=== PATIENT | female | born 1995 | race Hispanic/Latino ===

== ENCOUNTER 2018-02-16 11:00 | Emergency (ER) | payer SELFPAY ==
--- NOTE | 2018-02-16 11:52 | ER ---
Nurse's Notes [facility] Name: Anna Lynn Age: 22 yrs Sex: Female : 1995 Arrival Date: 02/16/2018 Time: 11:04 Bed 22 Private MD: None, None Diagnosis: Acute bronchitis Presentation: 02/16 11:18 Presenting complaint: Patient states: Cough and cold symptoms for 2 weeks. Transition aj of care: patient was not received from another setting of care. Onset of symptoms was February 04, 2018. Risk Assessment: Do you want to hurt yourself or someone else? Patient reports no desire to harm self or others. Initial Sepsis Screen: Does the patient meet any 2 criteria? No. Patient's initial sepsis screen is negative. Does the patient have a suspected source of infection? No. Patient's initial sepsis screen is negative. Care prior to arrival: None. 11:18 Method Of Arrival: Ambulatory aj 11:18 Acuity: PERNELL 4 aj Triage Assessment: 11:19 General: Appears in no apparent distress. comfortable, Behavior is calm, cooperative, aj appropriate for age. Pain: Denies pain. EENT: Reports nasal congestion nasal discharge. Neuro: Level of Consciousness is awake, alert, obeys commands, Oriented to person, place, time, situation, Appropriate for age. Respiratory: Reports cough that is. Derm: Skin is intact, is healthy with good turgor, Skin is pink, warm \T\ dry. normal. 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 - Social history:: Smoking status: Patient uses tobacco products, smokes one-half pack cigarettes per day. - Ebola Screening: : Patient negative for fever greater than or equal to 101.5 degrees Fahrenheit, and additional compatible Ebola Virus Disease symptoms Patient denies exposure to infectious person Patient denies travel to an Ebola-affected area in the 21 days before illness onset No symptoms or risks identified at this time. Screenin:32 Abuse screen: Denies threats or abuse. Denies injuries from another. Nutritional ss screening: No deficits noted. Tuberculosis screening: Never had TB. Fall Risk None identified. Assessment: 11:32 General: Appears in no apparent distress. comfortable, Behavior is cooperative. Pain: ss Denies pain. Neuro: Level of Consciousness is awake, alert, Oriented to person, place, time, situation. Cardiovascular: Capillary refill < 3 seconds is brisk in bilateral fingers. Respiratory: Breath sounds are clear bilaterally. Respiratory:. GI: Patient currently denies diarrhea, vomiting. : No signs and/or symptoms were reported regarding the genitourinary system. EENT: Nares are clear Oral mucosa is moist. Derm: Skin is intact, is healthy with good turgor, Skin is dry, Skin is pink, warm \T\ dry. normal. Musculoskeletal: Circulation, motion, and sensation intact. Range of motion: intact in all extremities, Swelling absent. 11:32 Respiratory: Reports cough that is non-productive, dry, hacking, persistent since x 3 ss weeks. Vital Signs: 11:19 BP 140 / 92; Pulse 87; Resp 20; Temp 98.6; Pulse Ox 98% on R/A; Weight 74.84 kg; Height aj 5 ft. 2 in. (157.48 cm); 11:19 Body Mass Index 30.18 (74.84 kg, 157.48 cm) aj ED Course: 11:04 Patient arrived in ED. sb2 11:04 None, None is Private Physician. sb2 11:12 Adriano Frederick PA is PHCP. jr8 11:12 Issa Rizzo MD is Attending Physician. jr8 11:19 Triage completed. aj 11:19 Arm band placed on left wrist. Patient placed in waiting room, Patient notified of wait aj time. 11:32 Patient has correct armband on for positive identification. Bed in low position. Call ss light in reach. Child being held by parent. 11:42 No provider procedures requiring assistance completed. Patient did not have IV access ss during this emergency room visit. 11:57 Gauri Balderas, PEDRO is Primary Nurse. ss Administered Medications: No medications were administered Outcome: 11:51 Discharge ordered by . jr8 11:57 Discharged to home ambulatory. ss 11:57 Condition: good 11:57 Discharge instructions given to patient, Instructed on discharge instructions, follow up and referral plans. medication usage, Demonstrated understanding of instructions, follow-up care, medications, Prescriptions given X 2. 11:58 Patient left the ED. Signatures: Heidy Maher RN Gauri Hamilton RN RN Adriano Frederick PA PA jr8 Alexa Carter sb2 Corrections: (The following items were deleted from the chart) 11:44 11:32 EENT: Nares with drainage noted Oral mucosa is moist. [facility] 11:44 11:32 Respiratory: Breath sounds are coarse in left upper lobe [facility] 11:44 11:32 Respiratory: Parent/caregiver reports the patient having cough that is x 3 weeks [facility] 11:52 11:32 Abuse screen: no obvious signs of abuse/ neglect noted [facility]
--- NOTE | 2018-02-16 11:52 | EDPHYS ---
Physician Documentation [facility] Emergency Department Name: Anna Lynn Age: 22 yrs Sex: Female : 1995 Arrival Date: 02/16/2018 Time: 11:04 Bed 22 Private MD: None, None ED Physician Issa Rizzo HPI: 02/16 11:50 This 22 yrs old Female presents to ER via Ambulatory with complaints of Cold jr8 Symptoms. 11:50 The patient or guardian reports cough, that is intermittent, described as mild, with no jr8 sputum. Onset: The symptoms/episode began/occurred gradually, 3 week(s) ago. Severity of symptoms: At their worst the symptoms were mild, in the emergency department the symptoms are unchanged. Modifying factors: The symptoms are alleviated by nothing, the symptoms are aggravated by nothing. Associated signs and symptoms: The patient has no apparent associated signs or symptoms. The patient has not experienced similar symptoms in the past. The patient has not recently seen a physician. continued cough that is not going away with OTC medication . 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 - Social history:: Smoking status: Patient uses tobacco products, smokes one-half pack cigarettes per day. - Ebola Screening: : Patient negative for fever greater than or equal to 101.5 degrees Fahrenheit, and additional compatible Ebola Virus Disease symptoms Patient denies exposure to infectious person Patient denies travel to an Ebola-affected area in the 21 days before illness onset No symptoms or risks identified at this time. ROS: 11:50 Eyes: Negative for injury, pain, redness, and discharge, ENT: Negative for injury, jr8 pain, and discharge, Neck: Negative for injury, pain, and swelling, Cardiovascular: Negative for chest pain, palpitations, and edema, Abdomen/GI: Negative for abdominal pain, nausea, vomiting, diarrhea, and constipation, Back: Negative for injury and pain, MS/Extremity: Negative for injury and deformity, Skin: Negative for injury, rash, and discoloration, Neuro: Negative for headache, weakness, numbness, tingling, and seizure. 11:50 Respiratory: Positive for cough, Negative for shortness of breath, sputum production, wheezing. Exam: 11:50 Eyes: Pupils equal round and reactive to light, extra-ocular motions intact. Lids and jr8 lashes normal. Conjunctiva and sclera are non-icteric and not injected. Cornea within normal limits. Periorbital areas with no swelling, redness, or edema. ENT: Nares patent. No nasal discharge, no septal abnormalities noted. Tympanic membranes are normal and external auditory canals are clear. Oropharynx with no redness, swelling, or masses, exudates, or evidence of obstruction, uvula midline. Mucous membranes moist. Neck: Trachea midline, no thyromegaly or masses palpated, and no cervical lymphadenopathy. Supple, full range of motion without nuchal rigidity, or vertebral point tenderness. No Meningismus. Cardiovascular: Regular rate and rhythm with a normal S1 and S2. No gallops, murmurs, or rubs. Normal PMI, no JVD. No pulse deficits. Respiratory: Lungs have equal breath sounds bilaterally, clear to auscultation and percussion. No rales, rhonchi or wheezes noted. No increased work of breathing, no retractions or nasal flaring. Abdomen/GI: Soft, non-tender, with normal bowel sounds. No distension or tympany. No guarding or rebound. No evidence of tenderness throughout. Back: No spinal tenderness. No costovertebral tenderness. Full range of motion. Skin: Warm, dry with normal turgor. Normal color with no rashes, no lesions, and no evidence of cellulitis. MS/ Extremity: Pulses equal, no cyanosis. Neurovascular intact. Full, normal range of motion. Neuro: Awake and alert, GCS 15, oriented to person, place, time, and situation. Cranial nerves II-XII grossly intact. Motor strength 5/5 in all extremities. Sensory grossly intact. Cerebellar exam normal. Normal gait. Vital Signs: 11:19 BP 140 / 92; Pulse 87; Resp 20; Temp 98.6; Pulse Ox 98% on R/A; Weight 74.84 kg; Height aj 5 ft. 2 in. (157.48 cm); 11:19 Body Mass Index 30.18 (74.84 kg, 157.48 cm) aj MDM: 11:38 Patient medically screened. [facility] 11:50 Data reviewed: vital signs, nurses notes, and as a result, I will discharge patient. jr8 Data interpreted: Pulse oximetry: on room air is 98 %. Interpretation: normal. Counseling: I had a detailed discussion with the patient and/or guardian regarding: the historical points, exam findings, and any diagnostic results supporting the discharge/admit diagnosis, the need for outpatient follow up, a family practitioner, to return to the emergency department if symptoms worsen or persist or if there are any questions or concerns that arise at home. Administered Medications: No medications were administered Disposition: 16:19 Co-signature as Attending Physician, Issa Rizzo MD I agree with the assessment and [facility] plan of care. Disposition: 02/16/18 11:51 Discharged to Home. Impression: Acute bronchitis. - Condition is Stable. - Discharge Instructions: Acute Bronchitis. - Prescriptions for Prednisone 20 mg Oral Tablet - take 1 tablet by ORAL route once daily for 5 days; 5 tablet. Albuterol Sulfate 90 mcg/actuation - inhale 1-2 puff by INHALATION route every 4-6 hours; 1 Inhaler. - Medication Reconciliation Form, Thank You Letter, Antibiotic Education, Prescription Opioid Use form. - Follow up: Private Physician; When: 1 week; Reason: Recheck today's complaints, Continuance of care, Re-evaluation by your physician. - Problem is new. - Symptoms are unchanged. Signatures: Heidy Maher, RN Issa Neal MD MD cha Smirch, Shelby, RN RN ss Roszak, Josh, PA PA jr8 Corrections: (The following items were deleted from the chart) 11:58 11:51 02/16/2018 11:51 Discharged to Home. Impression: Acute bronchitis. Condition is ss Stable. Forms are Medication Reconciliation Form, Thank You Letter, Antibiotic Education, Prescription Opioid Use. Follow up: Private Physician; When: 1 week; Reason: Recheck today's complaints, Continuance of care, Re-evaluation by your physician. Problem is new. Symptoms are unchanged. jr8
== END 2018-02-16 11:58 | disposition home or self-care (01) ==
LOC: ER 11:00
DX: J20.9 Acute bronchitis, unspecified (principal); F17.210 Nicotine dependence, cigarettes, uncomplicated
CPT/HCPCS: 99282